=== PATIENT | male | born 1965 | race Caucasian/White ===

== ENCOUNTER 2017-03-29 09:52 | Day surgery (SDC) | payer BC ==
--- NOTE | 2017-03-29 11:45 | Operative Note ---
Upper GI Endoscopy Procedure date: 03/29/17 Date of : 65 Procedure:Upper GI Endoscopy Esophagogastroduodenoscopy with cold biopsies and TTS balloon dilation Indications: Mr. Davis is a 51-year-old gentleman who is here for diagnostic/therapeutic upper endoscopy secondary to dysphagia. The patient states that he has had this with primarily meats for the last couple of years. He will have this for several weeks and then he will not have symptoms for a few weeks. He reports no heartburn, reflux, indigestion or dyspepsia. He reports no painful swallowing or chest pain. He has had no weight loss. This is his first upper endoscopy. Performing Provider: Darrick Guerra MD Referring Provider: Rafal Hughes M.D. Sedation: Fentanyl 150 mg IV/Versed 8 mg IV Procedure: Prior to the procedure, a history and physical exam was performed, and patients medications and allergies were reviewed. The risks and benefits of the procedure and the sedation options and risks were discussed with the patient. All questions were answered and informed consent was obtained. The patient was brought to the procedure room. Patient identification and proposed procedure were verified by the physician and the nurse. The patient was placed in a left lateral decubitus position and the scope was passed under direct vision. Throughout the procedure, the patient's blood pressure, pulse, and oxygen saturations were monitored continuously. The endoscope was introduced through the mouth, and advanced to the second part of duodenum. The upper GI endoscopy was accomplished without difficulty. The patient tolerated the procedure well. Findings: The scope was passed directly into the upper esophagus and advanced to the third portion of the duodenum. The post bulbar duodenum and duodenal bulb were normal with normal mucosa and conniventes. There was some peptic duodenitis of the duodenal bulb and biopsies were obtained. The scope was withdrawn through a normal pylorus into the stomach. There was mild chronic peptic gastritis of the antrum/body. The remainder of the antrum, body and fundus of the stomach were grossly normal. Upon retroflexion there was no hiatal hernia. 2 biopsies were taken in the antrum and along the lesser curvature for histology. The scope was then withdrawn into the esophagus. There was a distal Schatzki's ring. There was some corrugation and cold biopsies were obtained to rule out eosinophilic esophagitis. The diameter of the distal ring was approximately 13 mm and this was gently dilated up to 17 mm/51 [place] with a TTS hydrostatic balloon. Immediate complications: None EBL (ml): 0 Impression: 1. Esophageal stricture/Schatzki's ring with possible eosinophilic esophagitis status post dilation to 17 mm/51 [place] 2. Mild peptic gastroduodenitis Recommendations: I will follow up the biopsies. I will place the patient on omeprazole for 3 months. If there is evidence of esophageal eosinophilia, I would proceed with [facility] food ALLERGY testing. at [id number]
[2017-03-29 14:58] VITALS: BP 111/73
== END 2017-03-29 12:45 | disposition home or self-care (01) ==
LOC: SDC 09:52
PROVIDERS: Internal Medicine Gastroenterology
PROC: 0DB98ZX Excision of Duodenum, Via Natural or Artificial Opening Endoscopic, Diagnostic (ICD-10-PCS; 2017-03-29)
PROC: 0DB68ZX Excision of Stomach, Via Natural or Artificial Opening Endoscopic, Diagnostic (ICD-10-PCS; 2017-03-29)
PROC: 0DB58ZX Excision of Esophagus, Via Natural or Artificial Opening Endoscopic, Diagnostic (ICD-10-PCS; 2017-03-29)
PROC: 0D758ZZ Dilation of Esophagus, Via Natural or Artificial Opening Endoscopic (ICD-10-PCS; principal; 2017-03-29 11:00)
DX: K22.2 Esophageal obstruction (principal); K29.80 Duodenitis without bleeding; K29.50 Unspecified chronic gastritis without bleeding; Z79.899 Other long term (current) drug therapy
CPT/HCPCS: C1726